=== PATIENT | female | born 1980 | race Caucasian/White ===

== ENCOUNTER 2017-11-26 08:04 | Emergency (ER) | payer BC, OTHER ==
[2017-11-26 08:31] VITALS: BP 129/86
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
== END 2017-11-26 09:36 | disposition home or self-care (01) ==
LOC: UCEAST 08:04
DX: J44.1 Chronic obstructive pulmonary disease with (acute) exacerbation (principal); H10.31 Unspecified acute conjunctivitis, right eye; R53.83 Other fatigue; M79.1 Myalgia; Z83.3 Family history of diabetes mellitus; Z80.9 Family history of malignant neoplasm, unspecified; F17.210 Nicotine dependence, cigarettes, uncomplicated
CPT/HCPCS: 99212; G0463

== ENCOUNTER 2017-11-30 16:49 | Emergency (ER) | payer OTHER ==
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
[2017-11-30 17:08] VITALS: BP 144/82
[2017-11-30] MEDS ORDERED: Albuterol/Ipratropium NEB.SOL* Albuterol 2.5 MG/Ipratropium 0.5 MG 3 ML INH ONE (17:18)
[2017-11-30] MEDS ORDERED: Azithromycin TAB* 250 MG PO ONE (17:19)
== END 2017-11-30 17:45 | disposition home or self-care (01) ==
LOC: UCEAST 16:49
DX: J06.9 Acute upper respiratory infection, unspecified (principal); R06.2 Wheezing; S00.83XD Contusion of other part of head, subsequent encounter; S50.12XD Contusion of left forearm, subsequent encounter; S50.11XD Contusion of right forearm, subsequent encounter; Y04.0XXD Assault by unarmed brawl or fight, subsequent encounter; F41.9 Anxiety disorder, unspecified; F17.210 Nicotine dependence, cigarettes, uncomplicated; Z83.3 Family history of diabetes mellitus; Z80.9 Family history of malignant neoplasm, unspecified
CPT/HCPCS: 99212; A9270-GY; G0463

== ENCOUNTER 2018-01-01 08:14 | Emergency (ER) | payer OTHER ==
--- NOTE | 2018-01-01 08:26 | ED ---
Upper Extremity Pain - HPI Summary HPI Summary: Patient is a 37-year-old female who presents emergency department for pain to her right third digit after crush injury that occurred 3 weeks ago. 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 She also notes that her joints in her hands and fingers have been swelling and painful. She otherwise denies any medical problems. Symptoms are mild in severity. Movement makes symptoms worse. Nothing makes symptoms better. - History of Current Complaint Chief Complaint: EDExtremityUpper Stated Complaint: RT HAND INJURY Time Seen by Provider: 01/01/18 08:22 Hx Obtained From: Patient Hx Last Menstrual Period: 11/30/17 - Allergies/Home Medications Allergies/Adverse Reactions: Allergies Allergy/AdvReac Type Severity Reaction Status Date / Time No Known Allergies Allergy Verified 11/30/17 17:08 PMH/Surg Hx/FS Hx/Imm Hx Previously Healthy: Yes Respiratory History: Reports: Hx Chronic Obstructive Pulmonary Disease (COPD) - Surgical History Surgery Procedure, Year, and Place: tumor removed from lt neck Infectious Disease History: No Infectious Disease History: Denies: Traveled Outside the [place] in Last 30 Days - Family History Known Family History: Positive: Diabetes, Other - Cancer. 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 sitting in chair in NAD. Skin: Positive: Warm, Dry Head/Face: Positive: Normal Head/Face Inspection Eyes: Positive: Normal Neck: Positive: Supple Musculoskeletal: Positive: Other - Mild edema and pain noted to the DIP joint of the 3rd digit of right hand. No erythema or wounds. Full ROM of digits with pain. Mild diffuse edema to finger joints. Neurological: Positive: Normal, CN Intact II-III Psychiatric: Positive: Affect/Mood Appropriate Procedures - Splinting Right 3rd Digit Pre-Made Type: finger splint Pre-Proc Neuro Vasc Exam: normal Post-Proc Neuro Vasc Exam: normal Diagnostics - Vital Signs Vital Signs Temp Pulse Resp BP Pulse Ox 01/01/18 08:15 98.1 F 98 17 142/92 98 - Laboratory Lab Statement: Any lab studies that have been ordered have been reviewed, and results considered in the medical decision making process. Course/Dx - Course Course Of Treatment: Pt. presenting for ongoing finger pain after a crush injury. She also c/o diffuse joint hand pain. Xrays negative for acute findings , reading per radiology. Pt. states she has been taking NSAIDS with no relief. Will try a course of prednisone. Finger splint placed for comfort. Advised to schedule a close f.u apt. with PCP for further evaluation of arthalgia. Pt. understands and agrees with plan. - Diagnoses Differential Diagnosis/HQI/PQRI: Positive: Arthritis, Contusion, Fracture ( Closed), Strain, Sprain Provider Diagnoses: Finger contusion, Arthralgia Discharge - Sign-Out/Discharge Documenting (check all that apply): Patient Departure - Discharge Plan Condition: Good Disposition: HOME Prescriptions: predniSONE TAB* [Deltasone 20 MG TAB*] 40 mg PO DAILY #10 tab Patient Education Materials: Arthralgia (ED) Forms: *Work Release Referrals: Chelsey Hdz MD [Primary Care Provider] - Additional Instructions: Call your PCP on Wednesday to schedule a follow up appointment for joint swelling and pain Take prednisone as directed Return to ER if symptoms change or worsen - Billing Disposition and Condition Condition: GOOD Disposition: Home
--- NOTE | 2018-01-01 09:59 | RAD ---
INDICATION: 3 weeks of pain and swelling after a crush injury COMPARISON: None. TECHNIQUE: 4 views of the right hand were obtained. FINDINGS: The adequately corticated bones are in normal alignment. No significant focal osseous abnormality or fracture is seen. Joint spaces appear maintained. IMPRESSION: Normal right hand radiograph. If the patient's symptoms persist, follow-up imaging is recommended.
[2018-01-01 10:00] VITALS: BP 139/87
== END 2018-01-01 09:58 | disposition home or self-care (01) ==
LOC: ED 08:14
DX: S67.192A Crushing injury of right middle finger, initial encounter (principal); S60.031A Contusion of right middle finger without damage to nail, initial encounter; W23.0XXA Caught, crushed, jammed, or pinched between moving objects, initial encounter; Y92.511 Restaurant or cafe as the place of occurrence of the external cause; F17.210 Nicotine dependence, cigarettes, uncomplicated
CPT/HCPCS: 99282